=== PATIENT | male | born 1970 | race Caucasian/White ===

== ENCOUNTER → 2019-07-05 14:52 | Outpatient (BNVA) | payer OTHER, SELFPAY | PROVIDERS: PCP Emergency Medicine; Visit Provider Emergency Medicine | DX: Z20.818 Contact with and (suspected) exposure to other bacterial communicable diseases (principal); J02.9 Acute pharyngitis, unspecified; J32.0 Chronic maxillary sinusitis | CPT/HCPCS: 87081; 87880 ==